=== PATIENT | female | born 1975 | race Caucasian/White ===

== ENCOUNTER 2017-06-11 19:37 | Emergency (ER) | payer OTHER ==
[2017-06-11 22:20] LABS: URINE BLOOD (Dip) POC Negative (NEGATIVE); URINE GLUCOSE (Dip) POC Negative (NEGATIVE); URINE KETONES (Dip) POC Trace (NEGATIVE); URINE LEUKOCYTE EST (Dip) POC Negative (NEGATIVE); URINE NITRITE (Dip) POC Negative (NEGATIVE); URINE TOTAL PROTEIN POC Negative (NEGATIVE)
[2017-06-11] MEDS: ACETAMINOPHEN 500 MG TAB PO (23:29)
[2017-06-11] MEDS: DICYCLOMINE 10 MG CAP PO (23:29)
[2017-06-11] MEDS: IBUPROFEN 600 MG TAB PO (23:29)
[2017-06-11] MEDS: ONDANSETRON (ODT) 4 MG TAB ODT (23:29)
== END 2017-06-12 00:17 | disposition home or self-care (01) ==
LOC: FTE 06-12 00:17
DX: A08.4 Viral intestinal infection, unspecified (principal); I10 Essential (primary) hypertension
CPT/HCPCS: 81003; 99284

== ENCOUNTER 2017-06-15 12:21 | Emergency (ER) | payer OTHER ==
[2017-06-15] MEDS: ONDANSETRON 4 MG INJ IV (14:04)
[2017-06-15] MEDS: SOD CHLORIDE 0.9% 1,000 ML IV (14:05)
[2017-06-15] MEDS: KETOROLAC 15 MG INJ IV (14:08)
[2017-06-15 14:24] LABS: HEMATOCRIT 38.5 % (37.0-47.0); HEMOGLOBIN 12.5 g/dl (12.0-16.0); MEAN CORPUSCULAR HEMOGLOBIN 27.7 pg (29.0-33.0); MEAN CORPUSCULAR HGB CONC 32.5 g/dl (32.0-37.0); MEAN CORPUSCULAR VOLUME 85.4 fl (82.0-101.0); MEAN PLATELET VOLUME 10.5 fl (7.4-10.4); PLATELET COUNT 258 10^3/UL (140-415); RED BLOOD COUNT 4.51 10^6/ul (4.20-5.40); RED CELL DISTRIBUTION WIDTH 14.1 % (11.5-14.5)
[2017-06-15 14:24] LABS: WHITE BLOOD COUNT 8.2 10^3/ul (4.8-10.8)
[2017-06-15 14:31] LABS: ADD UMIC NO; UR ASCORBIC ACID NEGATIVE (NEGATIVE); UR BILIRUBIN (Dip) NEGATIVE (NEGATIVE); UR BLOOD (Dip) NEGATIVE (NEGATIVE); UR CLARITY CLEAR (CLEAR); UR COLOR YELLOW (YELLOW); UR GLUCOSE (Dip) NEGATIVE (NEGATIVE); UR KETONES (Dip) NEGATIVE (NEGATIVE); UR LEUKOCYTE ESTERASE (Dip) NEGATIVE Leu/ul (NEGATIVE); UR NITRITE (Dip) NEGATIVE (NEGATIVE); UR TOTAL PROTEIN (Dip) NEGATIVE (NEGATIVE); UR UROBILINOGEN (Dip) NEGATIVE (NEGATIVE)
[2017-06-15 14:32] LABS: POSITIVE DIFF @See below
[2017-06-15 14:33] LABS: ADD MAN DIFF? YES
[2017-06-15 15:00] LABS: ALANINE AMINOTRANSFERASE 82 IU/L (13-69); ALBUMIN 4.3 g/dl (3.3-4.9); ALBUMIN/GLOBULIN RATIO 1.04; ALKALINE PHOSPHATASE 136 IU/L (42-121); ANION GAP 20 (8-16); ASPARTATE AMINO TRANSFERASE 63 IU/L (15-46); BLOOD UREA NITROGEN 28 mg/dl (7-20); CALCIUM 9.7 mg/dl (8.4-10.2); CARBON DIOXIDE 25 mmol/L (21-31); CHLORIDE 102 mmol/L (97-110); CREATININE 2.29 mg/dl (0.44-1.00); GLUCOSE 114 mg/dl (70-220); LIPASE 84 U/L (23-300); POTASSIUM 3.9 mmol/L (3.5-5.1); SODIUM 143 mmol/L (135-144); TOTAL PROTEIN 8.4 g/dl (6.1-8.1)
[2017-06-15] MEDS: POTASSIUM CHLORIDE (SR) 20 MEQ TAB PO (15:47)
[2017-06-15] MEDS: CIPROFLOXACIN 400MG/D5W 200 ML IVPB (15:48)
[2017-06-15 16:04] LABS: BASOPHILS % (M) 1 % (0-2); LYMPHOCYTES #M 2.3 10^3/ul (0.8-2.9); LYMPHOCYTES % (M) 29 % (15-51); MONOCYTE #M 0.6 10^3/ul (0.3-0.9); MONOCYTES % (M) 8 % (0-11); PLASMAC%(M) 1 % (0); PLATELET ESTIMATE NORMAL; SEGMENTED NEUTROPHILS (M) % 61 % (39-77); SMUDGE%M 3 % (0-0)
== END 2017-06-15 16:30 | disposition home or self-care (01) ==
LOC: FTE 12:21
DX: R19.7 Diarrhea, unspecified (principal); I10 Essential (primary) hypertension
CPT/HCPCS: 36415; 80053; 81003; 83690; 84703; 85025; 96374; 96375; 99284-25

== ENCOUNTER 2017-11-28 18:06 | Emergency (ER) | payer OTHER ==
[2017-11-28] MEDS: IBUPROFEN 800 MG TAB PO (20:37)
[2017-11-28] MEDS: BUPIVACAINE 0.25% (MPF) 30 ML INJ INJ (22:13)
== END 2017-11-28 23:04 | disposition home or self-care (01) ==
LOC: FTE 18:06
DX: M51.36 Other intervertebral disc degeneration, lumbar region (principal); M62.830 Muscle spasm of back; I10 Essential (primary) hypertension
CPT/HCPCS: 20552; 72131; 81025; 99284-25

== ENCOUNTER 2018-06-19 14:59 | Emergency (ER) | payer OTHER ==
[2018-06-19 17:04] LABS: ADD MAN DIFF? NO
[2018-06-19 17:08] LABS: BASOPHILS % 0.2 % (0.0-2.0); EOSINOPHILS # 0.2 10^3/ul (0.0-0.5); EOSINOPHILS % 2.8 % (0.0-7.0); HEMATOCRIT 37.8 % (37.0-47.0); HEMOGLOBIN 12.5 g/dl (12.0-16.0); LYMPHOCYTES # 2.1 10^3/ul (0.8-2.9); LYMPHOCYTES % 36.1 % (15.0-51.0); MEAN CORPUSCULAR HEMOGLOBIN 29.8 pg (29.0-33.0); MEAN CORPUSCULAR HGB CONC 33.1 g/dl (32.0-37.0); MEAN PLATELET VOLUME 10.3 fl (7.4-10.4); MONOCYTE # 0.4 10^3/ul (0.3-0.9); NEUTROPHIL # 3.1 10^3/ul (1.6-7.5); NEUTROPHILS % 53.7 % (39.0-77.0); PLATELET COUNT 216 10^3/UL (140-415); RED CELL DISTRIBUTION WIDTH 12.8 % (11.5-14.5)
[2018-06-19 17:08] LABS: WHITE BLOOD COUNT 5.7 10^3/ul (4.8-10.8)
[2018-06-19] MEDS: ONDANSETRON 4 MG INJ IV (17:08)
[2018-06-19] MEDS: SOD CHLORIDE 0.9% 1,000 ML IV (17:09)
[2018-06-19] MEDS: morphine 4 MG/ML VIAL IV (17:09)
[2018-06-19 17:15] LABS: ADD UMIC NO; UR ASCORBIC ACID NEGATIVE (NEGATIVE); UR BACTERIA FEW /HPF (NONE SEEN); UR BILIRUBIN (Dip) NEGATIVE (NEGATIVE); UR BLOOD (Dip) NEGATIVE (NEGATIVE); UR CLARITY SLIGHTLY CLOUDY (CLEAR); UR COLOR YELLOW (YELLOW); UR GLUCOSE (Dip) NEGATIVE (NEGATIVE); UR KETONES (Dip) NEGATIVE (NEGATIVE); UR LEUKOCYTE ESTERASE (Dip) NEGATIVE Leu/ul (NEGATIVE); UR MUCUS MODERATE /HPF (NONE SEEN); UR NITRITE (Dip) NEGATIVE (NEGATIVE); UR RBC 1 /HPF (0-5); UR SPECIFIC GRAVITY (Dip) 1.026 (1.003-1.030); UR SQUAMOUS EPITHELIAL CELL MODERATE /HPF (FEW); UR TOTAL PROTEIN (Dip) NEGATIVE (NEGATIVE); UR UROBILINOGEN (Dip) NEGATIVE (NEGATIVE); UR WBC 1 /HPF (0-5)
[2018-06-19 17:26] LABS: ALANINE AMINOTRANSFERASE 56 IU/L (13-69); ALBUMIN 4.4 g/dl (3.3-4.9); ALBUMIN/GLOBULIN RATIO 1.18; ALKALINE PHOSPHATASE 97 IU/L (42-121); ANION GAP 9 (5-13); ASPARTATE AMINO TRANSFERASE 38 IU/L (15-46); BILIRUBIN,INDIRECT 0.1 mg/dl (0-1.1); BILIRUBIN,TOTAL 0.1 mg/dl (0.2-1.3); BLOOD UREA NITROGEN 12 mg/dl (7-20); CALCIUM 9.6 mg/dl (8.4-10.2); CARBON DIOXIDE 26 mmol/L (21-31); CHLORIDE 104 mmol/L (97-110); Estimated GFR > 60 mL/min (>60); GLUCOSE 95 mg/dl (70-220); LIPASE 56 U/L (23-300); POTASSIUM 3.8 mmol/L (3.5-5.1); SODIUM 139 mmol/L (135-144); TOTAL PROTEIN 8.1 g/dl (6.1-8.1)
== END 2018-06-19 18:27 | disposition home or self-care (01) ==
LOC: E/R 14:59
DX: R10.31 Right lower quadrant pain (principal); R19.7 Diarrhea, unspecified; I10 Essential (primary) hypertension
CPT/HCPCS: 36415; 74176; 80053; 81001; 81003; 81025; 83690; 85025; 96374; 96375; 99285-25

== ENCOUNTER 2018-08-27 13:30 | Emergency (ER) | payer OTHER ==
[2018-08-27] MEDS: morphine LIQ (10 MG/5 ML) CUP PO (17:10)
[2018-08-27] MEDS: ONDANSETRON (ODT) 4 MG TAB ODT (17:10)
== END 2018-08-27 17:30 | disposition home or self-care (01) ==
LOC: FTE 13:30
DX: M54.5 Low back pain (principal); I10 Essential (primary) hypertension
CPT/HCPCS: 99283; Z7502

== ENCOUNTER 2019-03-04 17:31 | Emergency (ER) | payer OTHER | END 2019-03-04 19:32 | disposition home or self-care (01) | LOC: FTE 17:31 | DX: M79.605 Pain in left leg (principal); N30.00 Acute cystitis without hematuria; I10 Essential (primary) hypertension | CPT/HCPCS: 36415; 80048; 81001; 85025; 99283 ==